=== PATIENT | female | born 1980 | race Caucasian/White ===

== ENCOUNTER 2018-07-13 12:44 | Outpatient (CLI) | payer BC ==
--- NOTE | 2018-07-13 13:37 | Mammography Report ---
RIGHT DIGITAL SCREENING MAMMOGRAM with CAD: 07/13/18 12:44:00 CLINICAL: Routine screening. Breast cancer survivor status post left mastectomy. COMPARISON:07/08/17 and 07/07/16 FINDINGS: The breast is heterogeneously dense with a stable fibroglandular pattern.No mass, architectural distortion or suspicious calcifications. IMPRESSION: No mammographic evidence of malignancy. BI-RADS CATEGORY: 1 - - Negative RECOMMENDATION: Routine screening in one year. ACR BI-RADS MAMMOGRAPHIC CODES: 0 = Needs additional imaging evaluation; 1 = Negative; 2 = Benign; 3 = Probably benign; 4 = Suspicious; 5 = Malignant; 6 = Known biopsy-proven malignancy COMMENT: 1. Dense breast tissue, i.e., adenosis, fibrocystic changes, etc., may obscure an underlying neoplasm. 2. Approximately 10% of cancers are not detected with mammography. 3. A negative mammography report should not delay biopsy if a clinically suspicious mass is present. COMMENT: Patient follow-up letters are generated via our [employer] application.
== END 2018-07-13 12:45 | disposition home or self-care (01) ==
LOC: SPVWC 12:44
PROVIDERS: ATTEND Surgery
DX: Z12.31 Encounter for screening mammogram for malignant neoplasm of breast (principal)

== ENCOUNTER 2018-07-22 11:34 | Outpatient (CLI) | payer BC ==
--- NOTE | 2018-07-23 15:13 | Magnetic Resonance Report ---
BILATERAL BREAST MRI WITHOUT AND WITH CONTRAST: 07/22/18 11:34:00 CLINICAL: Breast cancer survivor status post left total mastectomy and sentinel node staging for stage I left breast cancer in December 2013. She received chemotherapy and is currently taking tamoxifen. COMPARISON:07/13/18 negative screening mammogram. TECHNIQUE: Axial 1.0-mm T1 without, axial high resolution 2.0-mm T2 and axial 1.0-mm dynamic Vibrant high-resolution postcontrast T1 fat saturation sequences on a 1.5 Rach magnet. The examination was performed with an 8 channel dedicated [place] breast coil. Post processing with CAD and subtraction was performed on an [employer] workstation. 14.0 cc of Multihance was injected without incident for the contrast portion of the exam. Consent was obtained prior to the administration of the contrast. FINDINGS: Right: Minimal background parenchymal enhancement. No mass or suspicious enhancement. A few right axillary lymph nodes with benign morphology. No suspicious lymph nodes. Left: Status post total mastectomy. Normal chest wall. No mass or suspicious enhancement. No suspicious lymph nodes. IMPRESSION: Negative study status post left mastectomy BI-RADS 1 - - Negative
== END 2018-07-22 11:35 | disposition home or self-care (01) ==
LOC: SPVIMAG 11:34
PROVIDERS: ATTEND Surgery
DX: D36.0 Benign neoplasm of lymph nodes (principal); Z85.3 Personal history of malignant neoplasm of breast
CPT/HCPCS: A9577; C8908; 77049

== ENCOUNTER 2019-07-19 08:20 | Outpatient (CLI) | payer BC ==
--- NOTE | 2019-07-19 09:11 | Mammography Report ---
DIGITAL SCREENING MAMMOGRAM WITH CAD, 07/19/2019 INDICATION: Routine screening mammography. Breast cancer survivor status post left mastectomy. TECHNIQUE: Digital right 2D mammography was obtained in the craniocaudal and mediolateral oblique pr ojections. This examination was interpreted with the benefit of Computer-Aided Detection analysis. COMPARISON: 07/13/2018 FINDINGS: Breast Density: The breasts are heterogeneously dense, which may obscure small masses. There is no evidence of dominant mass, suspicious calcifications or architectural distortion in the r ight breast. IMPRESSION: No mammographic evidence of malignancy. Follow up recommendation: Routine yearly BI-RADS Category 1: Negative. A "normal" or negative report should not discourage follow up or biopsy of a clinically significant f inding. A written summary of these findings will be mailed to the patient. The patient will be entered into a mammography reporting system which will generate a reminder letter for the patient's next appointmen t at the appropriate interval. The [employer] recommends yearly mammograms starting at age 40 and continuing as l juan as a woman is in good health. Breast MRI is recommended for women with an approximate 20-25% or greater lifetime risk of breast cancer, including women with a strong family history of breast or ova tennille cancer or who have been treated for Hodgkin's disease. Signer Name: Henri Bertrand MD Signed: 07/19/2019 9:07 AM Workstation Name: [id number]
== END 2019-07-19 08:21 | disposition home or self-care (01) ==
LOC: SPVWC 08:20
PROVIDERS: ATTEND Surgery
DX: Z12.31 Encounter for screening mammogram for malignant neoplasm of breast (principal)
CPT/HCPCS: 77067